=== PATIENT | female | born 1995 | race Caucasian/White ===

== ENCOUNTER 2017-10-07 01:09 | Emergency (ER) | payer MEDICAID ==
[~2017-10-07] VITALS: Ht 154.9 cm; Wt 106.3 kg
[~2017-10-07 01:09] MED LIST: CLIN150C14 PO; DOCU-131 PO; HYDR-3240 PO; IBUP-1222 PO; METF500T4 PO; NITR100C56 PO; PREN1TAB52 PO; RISP1TAB45 PO; SERT25TA PO
[2017-10-07 01:11] VITALS: BP 133/85
[2017-10-07 01:49] LABS: HEMATOCRIT 37.7 % (34.6-47.8); HEMOGLOBIN 13.1 g/dL (11.7-16.4); WHITE BLOOD COUNT 6.9 x10^3/uL (3.4-10)
[2017-10-07 01:57] LABS: BLOOD UREA NITROGEN 13 mg/dL (7-18)
== END 2017-10-07 02:09 | disposition home or self-care (01) ==
LOC: ED 01:56
DX: N93.8 Other specified abnormal uterine and vaginal bleeding (principal); N92.4 Excessive bleeding in the premenopausal period; E11.9 Type 2 diabetes mellitus without complications; Z88.0 Allergy status to penicillin; Z88.1 Allergy status to other antibiotic agents
CPT/HCPCS: 36415; 80048; 84703; 85025; 99284

== ENCOUNTER 2018-03-26 14:51 | Outpatient (CLI) | payer MEDICAID ==
[2018-03-26 15:31] LABS: MICROSCOPIC INDICATED
[2018-03-26] MEDS ORDERED: PREN1TAB10 PO (16:15)
== END 2018-03-26 16:40 ==
LOC: LDOP 14:51
PROVIDERS: ATTEND Obstetrics & Gynecology
DX: O36.8130 Decreased fetal movements, third trimester, not applicable or unspecified (principal); Z3A.25 25 weeks gestation of pregnancy
CPT/HCPCS: 59025; 81001; 87086; 87147; 99211; G0463

== ENCOUNTER 2018-05-09 22:33 | Outpatient (CLI) | payer MEDICAID ==
[~2018-05-09 22:33] MED LIST changes: -METF500T4 PO; +METF500T5 PO; +PREN1TAB10 PO
[2018-05-09 22:47] VITALS: BP 117/55
[2018-05-09 23:02] LABS: MICROSCOPIC INDICATED
[2018-05-09] MEDS ORDERED: NITROFURANTOIN (MACROBID) 100 MG CAPSULE ONE (23:22)
[2018-05-09] MEDS ORDERED: NITROFURANTOIN (MACROBID) 100 MG CAPSULE PO ONE (23:30)
== END 2018-05-09 23:30 | disposition home or self-care (01) ==
LOC: LDOP 22:33
PROVIDERS: ATTEND Obstetrics & Gynecology
DX: O36.8130 Decreased fetal movements, third trimester, not applicable or unspecified (principal); Z3A.31 31 weeks gestation of pregnancy
CPT/HCPCS: 59025; 81001; 87086; 99211; G0463

== ENCOUNTER 2018-06-25 01:36 | Outpatient (CLI) | payer MEDICAID | END 2018-06-25 02:30 | disposition home or self-care (01) | LOC: LDOP 01:36 | PROVIDERS: ATTEND Obstetrics & Gynecology | DX: O36.8130 Decreased fetal movements, third trimester, not applicable or unspecified (principal); Z3A.37 37 weeks gestation of pregnancy | CPT/HCPCS: 59025; 99211; G0463 ==

== ENCOUNTER 2018-07-01 17:43 | Outpatient (CLI) | payer MEDICAID ==
[~2018-07-01] VITALS: Ht 154.9 cm; Wt 114.5 kg
[2018-07-01 17:52] VITALS: BP 122/80
== END 2018-07-01 18:25 | disposition home or self-care (01) ==
LOC: LDOP 17:43
PROVIDERS: ATTEND Obstetrics & Gynecology
DX: O26.893 Other specified pregnancy related conditions, third trimester (principal); R10.9 Unspecified abdominal pain; Z3A.38 38 weeks gestation of pregnancy
CPT/HCPCS: 59025; 99211; G0463

== ENCOUNTER 2018-07-12 00:41 | Emergency (ER) | payer MEDICAID ==
[~2018-07-12] VITALS: Ht 154.9 cm; Wt 108.6 kg
[~2018-07-12 00:41] MED LIST changes: +FERR325T5 PO; +IBUP-1223 PO; +OXYC-302 PO
[2018-07-12 00:44] VITALS: BP 138/78
== END 2018-07-12 03:17 | disposition left against medical advice (07) ==
LOC: ED 03:10
DX: R51 Headache (principal)
CPT/HCPCS: 99281

== ENCOUNTER 2019-11-18 11:38 | Emergency (ER) | payer MEDICAID ==
[~2019-11-18] VITALS: Ht 154.9 cm; Wt 98.2 kg
[~2019-11-18 11:38] MED LIST changes: +METF500T17 PO; -METF500T5 PO
[2019-11-18 12:29] VITALS: BP 147/85
== END 2019-11-18 14:06 | disposition home or self-care (01) ==
LOC: ED 12:00
DX: B34.9 Viral infection, unspecified (principal); E11.9 Type 2 diabetes mellitus without complications
CPT/HCPCS: 71046; 87081; 87147; 87880; 99284

== ENCOUNTER 2020-07-09 22:24 | Emergency (ER) | payer MEDICAID ==
[~2020-07-09] VITALS: Ht 154.9 cm; Wt 100.0 kg
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
[2020-07-09] MEDS ORDERED: SODIUM CHLORIDE 0.9% 1,000ML IVBOLUS ONE (23:00)
[2020-07-09] MEDS ORDERED: SODIUM CHLORIDE FLUSH 10ML SYR IVF ONE (23:00)
[2020-07-09] MEDS ORDERED: LIDOCAINE 1%, 10ML INFIL ONE (23:00)
[2020-07-09 23:23] LABS: BASOPHILS # (AUTO) 0.05 x10^3/uL (0-0.1); BASOPHILS % (AUTO) 1 % (0-1); EOSINOPHILS # (AUTO) 0.23 x10^3/uL (0-0.4); EOSINOPHILS % (AUTO) 2 % (1-7); LYMPHOCYTES # (AUTO) 1.33 x10^3/uL (1-3.4); LYMPHOCYTES % (AUTO) 14 % (22-44); MD NO; MEAN CORPUSCULAR HEMOGLOBIN 27.6 pg (27.0-34.8); MEAN CORPUSCULAR HGB CONC 33.8 g/dL (32.4-35.8); MEAN CORPUSCULAR VOLUME 81.6 fL (80-100); MEAN PLATELET VOLUME 10.5 fL (7.4-10.4); MONOCYTES % (AUTO) 4 % (2-9); NEUTROPHILS # (AUTO) 7.71 x10^3/uL (1.8-6.8); NEUTROPHILS % (AUTO) 79 % (42-75); PLATELET COUNT 217 x10^3/uL (130-400); RED BLOOD COUNT 4.37 x10^6/uL (3.82-5.3); RED CELL DISTRIBUTION WIDTH 12.7 % (9.6-15.2)
[2020-07-09 23:27] LABS: ALANINE AMINOTRANSFERASE 13 U/L (12-78); ALBUMIN 3.6 g/dL (3.4-5.0); ANION GAP 5 mmol/L (5-15); CALCIUM 9.1 mg/dL (8.5-10.1); CHLORIDE 109 mmol/L (98-107); CREATININE 0.79 mg/dL (0.55-1.02)
[2020-07-09 23:43] LABS: ALKALINE PHOSPHATASE 60 U/L (45-117); BILIRUBIN,TOTAL 0.3 mg/dL (0.2-1.0); TOTAL PROTEIN 7.1 g/dL (6.4-8.2)
[2020-07-09] MEDS ORDERED: LIDOCAINE-MPF 1%, 5ML ONE (23:53)
--- NOTE | 2020-07-09 23:57 | NUR ---
PT RESTING ON GURNEY, DENIES NEEDS AT THIS TIME. IVF INFUSING, MONITORING IN PLACE, CALL LIGHT WITHIN REACH.
[2020-07-10] MEDS ORDERED: DIPH,PERTUSS(ACELL),TET VAC/PF 0.5 ML IM-VACC ONE (00:30)
--- NOTE | 2020-07-10 00:31 | NUR ---
UA SENT TO LAB
--- NOTE | 2020-07-10 01:10 | NUR ---
PATIENT BACK FROM US, TOLERATED WELL.
[2020-07-10 02:04] VITALS: BP 122/84
[2020-07-10 02:08] LABS: MICROSCOPIC INDICATED
== END 2020-07-10 02:09 | disposition home or self-care (01) ==
LOC: ED 23:25
DX: O9A.211 Injury, poisoning and certain other consequences of external causes complicating pregnancy, first trimester (principal); S01.511A Laceration without foreign body of lip, initial encounter; R55 Syncope and collapse; N95.1 Menopausal and female climacteric states; X30.XXXA Exposure to excessive natural heat, initial encounter; Y93.89 Activity, other specified; Y92.89 Other specified places as the place of occurrence of the external cause; Y99.8 Other external cause status; Z3A.01 Less than 8 weeks gestation of pregnancy
CPT/HCPCS: 36415; 40650; 76801; 80053; 81001; 84702; 85025; 87086; 93005; 96360; 99285; J7030; 84703; 99284

== ENCOUNTER 2020-07-15 17:46 | Emergency (ER) | payer MEDICAID ==
[~2020-07-15] VITALS: Ht 154.9 cm; Wt 93.0 kg
[2020-07-15 17:52] VITALS: BP 127/89
== END 2020-07-15 21:34 | disposition home or self-care (01) ==
LOC: ED 19:26
DX: S01.511D Laceration without foreign body of lip, subsequent encounter (principal); Z48.02 Encounter for removal of sutures; X58.XXXD Exposure to other specified factors, subsequent encounter
CPT/HCPCS: 99281

== ENCOUNTER 2020-09-19 17:01 | Emergency (ER) | payer MEDICAID ==
[~2020-09-19] VITALS: Ht 154.9 cm; Wt 98.8 kg
[2020-09-19 18:31] LABS: BASOPHILS % (AUTO) 1 % (0-1); EOSINOPHILS % (AUTO) 2 % (1-7); LYMPHOCYTES % (AUTO) 18 % (22-44); MEAN CORPUSCULAR HEMOGLOBIN 27.3 pg (27.0-34.8); MEAN CORPUSCULAR HGB CONC 33.7 g/dL (32.4-35.8); MEAN PLATELET VOLUME 9.2 fL (7.4-10.4); MONOCYTES % (AUTO) 3 % (2-9); NEUTROPHILS % (AUTO) 77 % (42-75); PLATELET COUNT 233 x10^3/uL (130-400); RED CELL DISTRIBUTION WIDTH 12.8 % (9.6-15.2)
[2020-09-19 18:32] LABS: MD NO
--- NOTE | 2020-09-19 18:54 | NUR ---
NO ANSWER AT [id number]
--- NOTE | 2020-09-19 19:13 | NUR ---
TONGUE BINDER: PT. TO ROOM FROM LOBBY AT THIS TIME.
--- NOTE | 2020-09-19 20:20 | NUR ---
pt here for intermittent low abd pain and cramping. pt is 18weeks , A0. pt denies vaginal bleeding, no D/C, no urinary c/o. urine sample has been collected and sent. US currently at bedside
[2020-09-19 20:23] LABS: MICROSCOPIC INDICATED
[2020-09-19 21:17] VITALS: BP 134/75
--- NOTE | 2020-09-19 21:47 | NUR ---
this pt was D/C by another RN
== END 2020-09-19 21:19 | disposition home or self-care (01) ==
LOC: ED 17:30
DX: O26.892 Other specified pregnancy related conditions, second trimester (principal); M54.5 Low back pain; R10.2 Pelvic and perineal pain; E11.9 Type 2 diabetes mellitus without complications; Z3A.18 18 weeks gestation of pregnancy
CPT/HCPCS: 36415; 76815; 81001; 85025; 99284

== ENCOUNTER 2020-10-23 18:07 | Outpatient (CLI) | payer MEDICAID ==
[~2020-10-23] VITALS: Ht 154.9 cm; Wt 98.6 kg
== END 2020-10-23 18:45 | disposition home or self-care (01) ==
LOC: LDOP 18:07
PROVIDERS: ATTEND Obstetrics & Gynecology
DX: O26.892 Other specified pregnancy related conditions, second trimester (principal); Z3A.23 23 weeks gestation of pregnancy
CPT/HCPCS: 99211; G0463

== ENCOUNTER 2020-11-20 11:07 | Outpatient (CLI) | payer MEDICAID ==
[~2020-11-20] VITALS: Ht 154.9 cm; Wt 100.0 kg
[~2020-11-20 11:07] MED LIST changes: -CLIN150C14 PO; +CLIN150C15 PO
[2020-11-20 12:54] VITALS: BP 113/57
[2020-11-20 13:09] LABS: MICROSCOPIC INDICATED
[2020-11-20 16:13] LABS: AMPHETAMINE SCREEN, URINE Negative (Negative); BARBITURATE SCREEN, URINE Negative (Negative); BENZODIAZEPINE SCREEN, URINE Negative (Negative); CANNABINOID SCREEN, URINE Positive (Negative); COCAINE SCREEN, URINE Negative (Negative); METHADONE SCREEN, URINE Negative (Negative); OPIATE SCREEN, URINE Positive (Negative)
[2020-11-21] MEDS ORDERED: PROPOFOL 10 MG/ML, 20ML ONE (08:19)
[2020-11-21] MEDS ORDERED: LIDOCAINE-MPF 2% ,5ML ONE (08:19)
== END 2020-11-20 16:00 | disposition home or self-care (01) ==
LOC: LDOP 11:07
PROVIDERS: ATTEND Obstetrics & Gynecology
DX: O36.8120 Decreased fetal movements, second trimester, not applicable or unspecified (principal); Z3A.27 27 weeks gestation of pregnancy
CPT/HCPCS: 80307; 81001; 87086; 99211; J2704; G0463

== ENCOUNTER 2021-02-08 11:18 | Outpatient (CLI) | payer MEDICAID ==
[~2021-02-08] VITALS: Ht 154.9 cm; Wt 112.0 kg
[~2021-02-08 11:18] MED LIST changes: +HYDR-1067 PO; -HYDR-3240 PO; -OXYC-302 PO; +OXYC1TAB14 PO
[2021-02-08 11:50] VITALS: BP 113/62
[2021-02-08 11:53] LABS: BASOPHILS % (AUTO) 1 % (0-1); EOSINOPHILS % (AUTO) 1 % (1-7); LYMPHOCYTES % (AUTO) 15 % (22-44); MEAN CORPUSCULAR HEMOGLOBIN 25.9 pg (27.0-34.8); MEAN CORPUSCULAR HGB CONC 33.5 g/dL (32.4-35.8); MEAN PLATELET VOLUME 9.4 fL (7.4-10.4); MONOCYTES % (AUTO) 4 % (2-9); NEUTROPHILS % (AUTO) 79 % (42-75); PLATELET COUNT 201 x10^3/uL (130-400); RED BLOOD COUNT 3.97 x10^6/uL (3.82-5.3); RED CELL DISTRIBUTION WIDTH 14.7 % (9.6-15.2)
[2021-02-08 11:56] LABS: MD NO
[2021-02-08 12:07] LABS: ALBUMIN 2.7 g/dL (3.4-5.0); ANION GAP 7 mmol/L (5-15); CALCIUM 8.6 mg/dL (8.5-10.1); CHLORIDE 108 mmol/L (98-107)
[2021-02-08 12:13] LABS: ALANINE AMINOTRANSFERASE 12 U/L (12-78); ALKALINE PHOSPHATASE 129 U/L (45-117); BILIRUBIN,TOTAL 0.4 mg/dL (0.2-1.0); TOTAL PROTEIN 6.6 g/dL (6.4-8.2)
[2021-02-08 12:25] LABS: AMPHETAMINE SCREEN, URINE Negative (Negative); BARBITURATE SCREEN, URINE Negative (Negative); BENZODIAZEPINE SCREEN, URINE Negative (Negative); CANNABINOID SCREEN, URINE Negative (Negative); COCAINE SCREEN, URINE Negative (Negative); METHADONE SCREEN, URINE Negative (Negative); OPIATE SCREEN, URINE Negative (Negative); TOTAL PROTEIN,URINE RANDOM < 5 mg/dL (0-12)
== END 2021-02-08 12:50 | disposition home or self-care (01) ==
LOC: LDOP 11:18
PROVIDERS: ATTEND Obstetrics & Gynecology
DX: O98.513 Other viral diseases complicating pregnancy, third trimester (principal); O16.3 Unspecified maternal hypertension, third trimester; Z3A.37 37 weeks gestation of pregnancy
CPT/HCPCS: 36415; 59025; 80053; 80307; 82570; 84156; 84550; 85025; U0003

== ENCOUNTER 2021-02-11 05:49 | Inpatient (IN) | payer MEDICAID ==
[~2021-02-11] VITALS: Ht 157.5 cm; Wt 109.0 kg
[2021-02-11] MEDS ORDERED: SODIUM CITRATE/CITRIC ACID 15 ML UDC ONE (05:50)
[2021-02-11] MEDS ORDERED: METOCLOPRAMIDE 5 MG/ML, 2ML ONE (05:50)
[2021-02-11] MEDS ORDERED: CEFAZOLIN PMX 1GM/50ML 50 ML IVPB ONE (06:00)
[2021-02-11] MEDS ORDERED: CLINDAMYCIN PMX 900MG/50ML 50 ML IVPB ONE (06:00)
[2021-02-11] MEDS ORDERED: METOCLOPRAMIDE 5 MG/ML, 2ML IV ONE (06:00)
[2021-02-11] MEDS ORDERED: LACTATED RINGERS 1,000 ML IV SCH (06:00)
[2021-02-11] MEDS ORDERED: ONDANSETRON 2MG/ML, 2ML IVPush ONE (06:00)
[2021-02-11] MEDS ORDERED: CALCIUM CARBONATE 500 MG TAB.CHEW PO PRN ×2 (06:00→09:30)
[2021-02-11] MEDS ORDERED: LACTATED RINGERS 1,000 ML IVBOLUS ONE (06:00)
[2021-02-11] MEDS ORDERED: SODIUM CITRATE/CITRIC ACID 30 ML UDC PO ONE (06:00)
[2021-02-11 06:13] LABS: BASOPHILS % (AUTO) 1 % (0-1); EOSINOPHILS % (AUTO) 2 % (1-7); LYMPHOCYTES % (AUTO) 22 % (22-44); MD NO; MEAN CORPUSCULAR HEMOGLOBIN 26.1 pg (27.0-34.8); MEAN CORPUSCULAR HGB CONC 33.7 g/dL (32.4-35.8); MEAN PLATELET VOLUME 9.8 fL (7.4-10.4); MONOCYTES % (AUTO) 6 % (2-9); NEUTROPHILS % (AUTO) 70 % (42-75); PLATELET COUNT 229 x10^3/uL (130-400); RED BLOOD COUNT 3.99 x10^6/uL (3.82-5.3)
[2021-02-11] MEDS ORDERED: NEWBORN KIT ONE (06:18)
[2021-02-11] MEDS: LACTATED RINGERS 1,000 ML IV SCH ×4 (07:00→17:30)
[2021-02-11] MEDS ORDERED: EPHEDRINE 50 MG/ML, 1ML ONE (07:12)
[2021-02-11] MEDS ORDERED: KETOROLAC 30 MG/1 ML ONE (07:12)
[2021-02-11] MEDS ORDERED: ONDANSETRON 2MG/ML, 2ML ONE (07:12)
[2021-02-11] MEDS ORDERED: OXYTOCIN 10 UNITS/ML, 1ML ONE (07:12)
[2021-02-11] MEDS ORDERED: PHENYLEPHRINE 10 MG/ML ONE (07:12)
[2021-02-11] MEDS ORDERED: DEXAMETHASONE 4 MG/ML, 1ML ONE (07:12)
[2021-02-11] MEDS ORDERED: CEFAZOLIN 1,000 MG ONE (07:12)
[2021-02-11] MEDS ORDERED: FENTANYL PF 100 MCG/2ML ONE (07:13)
[2021-02-11] MEDS ORDERED: HYDROmorphone 2 MG/ML, 1ML IVPush PRN (07:30)
[2021-02-11] MEDS ORDERED: hydrALAzine 20 MG/ML, 1ML IV PRN ×2 (07:30→10:00)
[2021-02-11] MEDS ORDERED: METOPROLOL 1 MG/ML, 5ML IV PRN ×2 (07:30→10:00)
[2021-02-11] MEDS ORDERED: HYDROcodone/APAP 7.5-325MG/15ML UDC PO PRN ×2 (07:30→10:00)
[2021-02-11] MEDS ORDERED: PROMETHAZINE 25 MG/ML, 1ML IV PRN (07:30)
[2021-02-11] MEDS ORDERED: LABETALOL 5MG/ML, 20ML IV PRN ×2 (07:30→10:00)
[2021-02-11] MEDS ORDERED: MIDAZOLAM 1 MG/ML, 2ML IV PRN ×2 (07:30→10:00)
[2021-02-11] MEDS ORDERED: METOCLOPRAMIDE 5 MG/ML, 2ML IV PRN (07:30)
[2021-02-11] MEDS ORDERED: MEPERIDINE/PF 25MG/0.5ML IVPush PRN ×2 (07:30→10:00)
[2021-02-11] MEDS ORDERED: ONDANSETRON 2MG/ML, 2ML IVPush PRN ×2 (07:30→10:00)
[2021-02-11] MEDS ORDERED: ALBUTEROL SULFATE 2.5 MG/3 ML NPPB PRN ×2 (07:30→10:00)
[2021-02-11] MEDS ORDERED: EPHEDRINE 50 MG/ML, 1ML IVPush PRN ×2 (07:30→10:00)
[2021-02-11] MEDS ORDERED: OXYcodone 5 MG/5 ML ORAL.SOL UDC PO PRN ×2 (07:30→10:00)
[2021-02-11] MEDS ORDERED: FENTANYL PF 100 MCG/2ML IV PRN ×2 (07:30→10:00)
[2021-02-11 07:38] LABS: AMPHETAMINE SCREEN, URINE Negative (Negative); BARBITURATE SCREEN, URINE Negative (Negative); BENZODIAZEPINE SCREEN, URINE Negative (Negative); CANNABINOID SCREEN, URINE Negative (Negative); COCAINE SCREEN, URINE Negative (Negative); METHADONE SCREEN, URINE Negative (Negative); OPIATE SCREEN, URINE Negative (Negative)
[2021-02-11] MEDS ORDERED: DIPHENHYDRAMINE 50 MG/ML, 1ML ONE (09:28)
[2021-02-11] MEDS ORDERED: SIMETHICONE 80 MG CHEW TAB PO PRN (09:30)
[2021-02-11] MEDS ORDERED: morphine SULFATE 10 MG/ML, 1ML IVPush PRN ×2 (09:30)
[2021-02-11] MEDS ORDERED: MEASLES,MUMPS&RUBELLA VACC/PF 0.5 ML SQ-VACC PRN (09:30)
[2021-02-11] MEDS ORDERED: ACETAMINOPHEN 325 MG TABLET PO PRN (09:30)
[2021-02-11] MEDS ORDERED: OXYTOCIN 30U/ 0.9% NaCL 500ML 500 ML IV SCH (09:30)
[2021-02-11] MEDS ORDERED: OXYcodone/APAP 5/325MG TABLET PO PRN (09:30)
[2021-02-11] MEDS ORDERED: TRANEXAMIC ACID 100 MG/ML, 10ML IV ONE (09:30)
[2021-02-11] MEDS ORDERED: ONDANSETRON 2MG/ML, 2ML IV PRN (09:30)
[2021-02-11] MEDS ORDERED: DIPHENHYDRAMINE 50 MG/ML, 1ML IVPush PRN (10:00)
[2021-02-11] MEDS ORDERED: PROMETHAZINE 25 MG/ML, 1ML IVPush PRN (10:00)
[2021-02-11] MEDS ORDERED: HYDROmorphone 1 MG/ML, 1ML INJ IVPush PRN (10:00)
[2021-02-11] MEDS ORDERED: MISOPROSTOL 200 MCG TABLET ONE (10:27)
[2021-02-11 10:45] VITALS: BP 103/63
[2021-02-11] MEDS ORDERED: MISOPROSTOL 200 MCG TABLET PR ONE (11:00)
[2021-02-11] MEDS: OXYcodone IR 5MG TABLET PO PRN ×3 (14:39→22:47)
[2021-02-11 14:45] VITALS: BP 110/70
[2021-02-11 16:21] LABS: BASOPHILS % (AUTO) 0 % (0-1); EOSINOPHILS % (AUTO) 0 % (1-7); LYMPHOCYTES % (AUTO) 5 % (22-44); MEAN CORPUSCULAR HEMOGLOBIN 25.8 pg (27.0-34.8); MEAN CORPUSCULAR HGB CONC 33.3 g/dL (32.4-35.8); MEAN PLATELET VOLUME 9.9 fL (7.4-10.4); MONOCYTES % (AUTO) 2 % (2-9); NEUTROPHILS % (AUTO) 93 % (42-75); PLATELET COUNT 214 x10^3/uL (130-400); RED BLOOD COUNT 3.95 x10^6/uL (3.82-5.3)
[2021-02-11 16:23] LABS: MD NO
[2021-02-11 19:25] VITALS: BP 111/74
[2021-02-11] MEDS: DOCUSATE 100 MG CAPSULE PO PRN (22:46)
[2021-02-12 00:21] VITALS: BP 108/65
[2021-02-12] MEDS: OXYcodone IR 5MG TABLET PO PRN ×5 (04:05→21:07)
[2021-02-12 04:12] VITALS: BP 108/65
[2021-02-12 07:38] VITALS: BP 117/57
[2021-02-12] MEDS: PRENATAL VIT/IRON/FA 1 EACH TABLET PO SCH (08:12)
[2021-02-12] MEDS: DOCUSATE 100 MG CAPSULE PO PRN ×2 (08:12→21:07)
[2021-02-12 11:58] VITALS: BP 119/73
[2021-02-12] MEDS ORDERED: IBUP-1222 PO (14:25)
[2021-02-12] MEDS ORDERED: DOCU-131 PO (14:26)
[2021-02-12 16:18] VITALS: BP 127/81
[2021-02-12 19:20] VITALS: BP 129/85
[2021-02-13] MEDS: OXYcodone IR 5MG TABLET PO PRN ×2 (02:35→23:49)
[2021-02-13 07:40] VITALS: BP 116/78
[2021-02-13] MEDS: IBUPROFEN 800 MG TABLET PO PRN ×3 (07:59→23:48)
[2021-02-13] MEDS: DOCUSATE 100 MG CAPSULE PO PRN (07:59)
[2021-02-13] MEDS: PRENATAL VIT/IRON/FA 1 EACH TABLET PO SCH (07:59)
[2021-02-13 20:10] VITALS: BP 124/83
[2021-02-14 07:35] VITALS: BP 124/81
[2021-02-14] MEDS: PRENATAL VIT/IRON/FA 1 EACH TABLET PO SCH (09:27)
[2021-02-14] MEDS: DOCUSATE 100 MG CAPSULE PO PRN ×2 (09:27→19:32)
[2021-02-14] MEDS: IBUPROFEN 800 MG TABLET PO PRN ×2 (09:27→19:32)
[2021-02-14] MEDS: OXYcodone IR 5MG TABLET PO PRN ×2 (09:28→19:31)
[2021-02-14 19:35] VITALS: BP 111/72
[2021-02-15] MEDS: IBUPROFEN 800 MG TABLET PO PRN (03:46)
[2021-02-15 09:00] VITALS: BP 138/78
[2021-02-15] MEDS: PRENATAL VIT/IRON/FA 1 EACH TABLET PO SCH (09:52)
[2021-02-15] MEDS: DOCUSATE 100 MG CAPSULE PO PRN (09:52)
== END 2021-02-15 16:05 | disposition home or self-care (01) | DRG 788 ==
LOC: LDIP 05:49 → 2NW 10:39
PROVIDERS: ADMIT Obstetrics & Gynecology; ATTEND Obstetrics & Gynecology
PROC: 10D00Z1 Extraction of Products of Conception, Low, Open Approach (ICD-10-PCS; principal; 2021-02-11)
DX: O34.211 Maternal care for low transverse scar from previous cesarean delivery (principal); O13.4 Gestational [pregnancy-induced] hypertension without significant proteinuria, complicating childbirth; Z37.0 Single live birth; Z3A.38 38 weeks gestation of pregnancy; Z88.0 Allergy status to penicillin; Z88.8 Allergy status to other drugs, medicaments and biological substances; K66.0 Peritoneal adhesions (postprocedural) (postinfection); O40.3XX0 Polyhydramnios, third trimester, not applicable or unspecified; O99.62 Diseases of the digestive system complicating childbirth
CPT/HCPCS: 36415; 80307; 85025; 86592; 86850; 86900; G0378; J0690; J1100; J1885; J2405; J3010; J1200; J2370; J2590; J2765; J7120